=== PATIENT | male | born 1985 | race Two or more races ===

== ENCOUNTER 2023-07-12 19:00 | Emergency (ER) | payer OTHER ==
[~2023-07-12] VITALS: Ht 165.1 cm; Wt 70.8 kg
== END 2023-07-13 00:27 | disposition home or self-care (01) ==
LOC: ER 19:00
DX: M54.50 Low back pain, unspecified (principal)

== ENCOUNTER 2024-06-11 19:23 | Emergency (ER) | payer OTHER ==
[~2024-06-11] VITALS: Ht 165.1 cm; Wt 63.5 kg
[2024-06-11 20:18] LABS: HEMATOCRIT 42.3 % (39.0-48.0); HEMOGLOBIN 14.5 g/dL (13-16.00); MEAN CELL VOLUME 91.3 fL (80.0-100.00); MEAN CORPUSCULAR HEMOGLOBIN 31.4 pg (27.00-32.0); MEAN CORPUSCULAR HGB CONC 34.4 g/dl (32.0-36.0); PLATELET COUNT 237 K/uL (150-450); RED BLOOD COUNT 4.63 M/uL (4.00-6.00); RED CELL DISTRIBUTION WIDTH 13.4 % (11.5-14.5)
[2024-06-11 20:42] LABS: ALBUMIN 3.7 gm/dL (3.4-5.0); BILIRUBIN TOTAL 0.88 mg/dL (0.3-1.2); CALCIUM 8.8 mg/dL (8.5-10.1); CREATININE SERUM 0.96 mg/dL (0.70-1.30); GFR 88.13; GLOBULINA 3.3 G/DL (2.4-3.5); POTASSIUM 4.35 mEq/L (3.5-5.1)
[2024-06-11 20:57] LABS: URINE APPEARANCE Cloudy; URINE BILIRRUBIN Negative (NEGATIVE); URINE BLOOD Negative; URINE COLOR Yellow; URINE GLUCOSE Negative (NEGATIVE); URINE KETONE Negative (NEGATIVE); URINE LEUKOCYTE Negative; URINE NITRATE Negative; URINE PROTEIN Negative (NEGATIVE)
[2024-06-11 21:00] LABS: URINE RBC 3.3 uL (0.0-20.8)
[2024-06-11 21:07] LABS: URINE BACTERIA 3.7 uL (0.0-1933); URINE EPITHELIAL CELLS 0.4 uL (0.0-38.8)
== END 2024-06-11 22:02 | disposition home or self-care (01) ==
LOC: ER 19:25
PROVIDERS: General Practice
DX: R53.81 Other malaise (principal); H81.10 Benign paroxysmal vertigo, unspecified ear; Z20.822 Contact with and (suspected) exposure to COVID-19